=== PATIENT | male | born 1985 | race African-American/Black ===

== ENCOUNTER 2020-06-21 18:38 | Emergency (ER) | payer BC ==
[2020-06-21] MEDS ORDERED: Sodium Chloride 0.9% 10 ML Syringe FLUSH PRN (19:18)
[2020-06-21] MEDS ORDERED: Ondansetron 4 MG/2 ML SDV IVPUSH ONE (19:18)
[2020-06-21] MEDS ORDERED: Sodium Chloride 0.9% 1,000 ML IV SCH (19:30)
--- NOTE | 2020-06-21 19:45 | EDM.PDOC ---
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 He threw up x 3 in an effort to bring it up,he complains that he feels it moved. He now complains of weakness,chest pain and generalized malaise,difficulty breathing. he is a smoker. throat/upper chest Pain Score (Numeric/FACES): 5 - Related Data Allergies Allergy/AdvReac Type Severity Reaction Status Date / Time No Known Allergies Allergy Verified 06/21/20 19:23 Home Meds: Home Meds NK [No Known Home Meds] 06/21/20 [History] Past Medical History - Past Surgical History GI Surgical History: Reports: Appendectomy Social & Family History - Family History Family Medical History: Noncontributory - Tobacco Use Smoking Status *Q: Current Every Day Smoker Years of Tobacco use: 7 Packs/Tins Daily: 0.5 - Caffeine Use Caffeine Use: Reports: None - Recreational Drug Use Recreational Drug Use: Yes Recreational Drug Type: Reports: Marijuana/Hashish ED ROS GENERAL - Review of Systems Review Of Systems: Comprehensive ROS is negative, except as noted in HPI. ED EXAM, GENERAL - Physical Exam Exam: See Below Exam Limited By: No Limitations General Appearance: Alert, WD/WN, No Apparent Distress, Lethargic Ears: Normal External Exam Ear Exam: Bilateral Ear: Auricle Normal, Canal Normal, TM normal Throat/Mouth: Normal Inspection, Normal Lips, Normal Teeth, Normal Gums, Normal Oropharynx, Normal Voice, No Airway Compromise Head: Atraumatic, Normocephalic Neck: Normal Inspection, Supple, Non-Tender, Full Range of Motion Respiratory/Chest: No Respiratory Distress, Lungs Clear Cardiovascular: Normal Peripheral Pulses GI/Abdominal: Normal Bowel Sounds, Soft Neurological: Alert, Oriented Psychiatric: Normal Affect Skin Exam: Warm EKG INTERPRETATION EKG Date: 06/21/20 Course - Vital Signs Last Recorded V/S: Last Vital Signs Temp 98.3 F 06/21/20 20:50 Pulse 86 06/21/20 20:50 Resp 18 06/21/20 20:50 BP 127/90 06/21/20 20:50 Pulse Ox 100 06/21/20 20:50 - Orders/Labs/Meds Orders: Active Orders 24 hr Category Date Time Status EKG Documentation Completion [RC] ASDIRECTED Care 06/21/20 19:46 Active EKG Documentation Completion [RC] ASDIRECTED Care 06/21/20 19:46 Active Chest 2V [CR] Stat Exams 06/21/20 20:06 Taken Sodium Chloride 0.9% [Normal Saline] 1,000 ml Med 06/21/20 19:30 Active IV ASDIRECTED Sodium Chloride 0.9% [Saline Flush] Med 06/21/20 19:18 Active 10 ml FLUSH ASDIRECTED PRN Peripheral IV Insertion Adult [OM.PC] Routine Oth 06/21/20 19:18 Ordered EKG 12 Lead [EK] Routine Ther 06/21/20 19:46 Ordered Medication Orders Sodium Chloride (Normal Saline) 1,000 mls @ 999 mls/hr IV ASDIRECTED JAEL Last Admin: 06/21/20 19:40 Dose: 999 mls/hr Documented by: BRENLOR Sodium Chloride (Saline Flush) 10 ml FLUSH ASDIRECTED PRN PRN Reason: Keep Vein Open Labs: Laboratory Tests 06/21/20 06/21/20 06/21/20 Range/Units 19:30 19:30 19:30 WBC 9.0 (4.5-12.0) X10-3/uL RBC 5.92 H (4.30-5.75) x10(6)uL Hgb 17.0 (13.5-17.8) g/dL Hct 52.9 H (30.0-51.3) % MCV 89.3 (80-96) fL MCH 28.7 (27.7-33.6) pg MCHC 32.2 (32.2-35.4) g/dL RDW 13.3 (11.5-15.5) % Plt Count 337 (125-369) X10(3)uL MPV 8.5 (7.4-10.4) fL Neut % (Auto) 71.7 (46-82) % Lymph % (Auto) 17.7 (13-37) % Wood % (Auto) 7.7 (4-12) % Eos % (Auto) 1 (1.0-5.0) % Baso % (Auto) 2 (0-2) % Neut # (Auto) 6.4 (1.6-8.3) # Lymph # (Auto) 1.6 (0.6-5.0) # Wood # (Auto) 0.7 (0.0-1.3) # Eos # (Auto) 0.1 (0.0-0.8) # Baso # (Auto) 0.2 (0.0-0.2) # Sodium 140 (135-145) mmol/L Potassium 3.9 (3.5-5.3) mmol/L Chloride 100 (100-110) mmol/L Carbon Dioxide 28 (21-32) mmol/L BUN 21 H (7-18) mg/dL Creatinine 1.7 H (0.70-1.30) mg/dL Est Cr Clr Drug Dosing 82.07 mL/min Estimated GFR (MDRD) 55 L (>60) BUN/Creatinine Ratio 12.4 (9-20) Glucose 103 (80-116) mg/dL Calcium 10.3 H (8.6-10.2) mg/dL Total Bilirubin 0.7 (0.1-1.3) mg/dL AST 44 H (5-25) IU/L ALT 53 H (12-36) U/L Alkaline Phosphatase 102 (56-112) IU/L Creatine Kinase 1328 H* (60-160) IU/L Troponin I 7.2 (4.0-60.3) pg/mL Total Protein 9.4 H (6.0-8.0) g/dL Albumin 5.1 (3.5-5.2) g/dL Globulin 4.3 g/dL Albumin/Globulin Ratio 1.2 Meds: Medications Generic Name Dose Route Start Last Admin Trade Name Freq PRN Reason Stop Dose Admin Sodium Chloride 1,000 mls @ 999 mls/hr 06/21/20 19:30 06/21/20 19:40 Normal Saline IV 999 mls/hr ASDIRECTED JAEL Administration Sodium Chloride 10 ml 06/21/20 19:18 Saline Flush FLUSH ASDIRECTED PRN Keep Vein Open Discontinued Medications Generic Name Dose Route Start Last Admin Trade Name Freq PRN Reason Stop Dose Admin Ondansetron HCl 4 mg 06/21/20 19:18 06/21/20 19:45 Zofran IVPUSH 06/21/20 19:19 4 mg ONETIME ONE Administration Departure - Departure Time of Disposition: 21:00 Disposition: Home, Self-Care 01 Condition: Good Clinical Impression: Rhabdomyolysis - Discharge Information Instructions: Dehydration, Adult, [id number] Referrals: PCP,Not In Area [Primary Care Provider] - Forms: ED Department Discharge Care Plan Goals: Follow up with MD early next week. Drink plenty of fluids. Sepsis Event Note (ED) - Evaluation Sepsis Screening Result: No Definite Risk - Focused Exam Vital Signs: Vital Signs Temp Pulse Pulse Resp BP Pulse Ox 06/21/20 20:50 98.3 F 86 18 127/90 100 06/21/20 18:38 97.8 F 114 H 18 122/96 H 97 - Problem List & Annotations (1) Rhabdomyolysis SNOMED Code(s): 896501368 Code(s): M62.82 - RHABDOMYOLYSIS Status: Acute Current Visit: Yes Qualifiers: Rhabdomyolysis type: non-traumatic Qualified Code(s): M62.82 - Rhabdomyolysis (2) Odynophagia SNOMED Code(s): 78905535 Code(s): R13.10 - DYSPHAGIA, UNSPECIFIED Status: Acute Current Visit: Yes (3) JOANNA (acute kidney injury) SNOMED Code(s): 54389525, 89096008 Code(s): N17.9 - ACUTE KIDNEY FAILURE, UNSPECIFIED Status: Acute Current Visit: Yes - Problem List Review Problem List Initiated/Reviewed/Updated: Yes - My Orders Last 24 Hours: My Active Orders 06/21/20 19:18 Sodium Chloride 0.9% [Saline Flush] 10 ml FLUSH ASDIRECTED PRN Peripheral IV Insertion Adult [OM.PC] Routine 06/21/20 19:30 Sodium Chloride 0.9% [Normal Saline] 1,000 ml IV ASDIRECTED 06/21/20 19:46 EKG Documentation Completion [RC] ASDIRECTED EKG Documentation Completion [RC] ASDIRECTED EKG 12 Lead [EK] Routine 06/21/20 20:06 Chest 2V [CR] Stat - Assessment/Plan Last 24 Hours: My Active Orders 06/21/20 19:18 Sodium Chloride 0.9% [Saline Flush] 10 ml FLUSH ASDIRECTED PRN Peripheral IV Insertion Adult [OM.PC] Routine 06/21/20 19:30 Sodium Chloride 0.9% [Normal Saline] 1,000 ml IV ASDIRECTED 06/21/20 19:46 EKG Documentation Completion [RC] ASDIRECTED EKG Documentation Completion [RC] ASDIRECTED EKG 12 Lead [EK] Routine 06/21/20 20:06 Chest 2V [CR] Stat Plan: I gave him 1 L of normal saline. I advised him to drink lots of water. I did talk with Dr Baires. He dh=idnt feel( I concur) that an EGD would be valuable. Follow up on Wednesday.
--- NOTE | 2020-06-24 10:23 | CR ---
INDICATION: Chest pain. CHEST TWO VIEWS: PA and lateral views of the chest were obtained 06/21/20 - no comparison. The heart and mediastinum are unremarkable. There is suggestion of a minimal dextroconvex scoliosis of the upper middle thoracic spine. An active infiltrate or effusion was not identified. IMPRESSION: No acute process. MTDD
== END 2020-06-21 21:00 | disposition home or self-care (01) ==
LOC: FB.ED 18:38
DX: M62.82 Rhabdomyolysis (principal); R13.10 Dysphagia, unspecified; F17.210 Nicotine dependence, cigarettes, uncomplicated; Z90.49 Acquired absence of other specified parts of digestive tract; X58.XXXA Exposure to other specified factors, initial encounter
CPT/HCPCS: 36415; 71046; 80053; 82550; 84484; 85025; 93005; 96361; 96374; 99285; J2405; J7030; 99283